=== PATIENT | female | born 1955 | race Caucasian/White ===

== ENCOUNTER 2016-10-10 15:20 | Emergency (ER) | payer OTHER, MEDICAID ==
[~2016-10-10] VITALS: Ht 157.5 cm; Wt 79.4 kg
[2016-10-10 15:25] VITALS: BP 132/78; PULSE 78; RESP 16; TEMP 97.6; O2SAT 98
--- NOTE | 2016-10-10 15:49 | NUR ---
Patient to ER bed 5 to gown for evaluation. Side rails up. Report given to PONCE CARLOS.
--- NOTE | 2016-10-10 15:50 | NUR ---
Patient in stable condition, alert and oriented x4. States spilled coffee on her sunday, coffee hit left chest and bilateral feet. Red burn nadja noted to left chest, skin intact. Right foot has redness and small closed blisters. Left medial foot has large closed blister that wraps to posterior foot. Patient states that Dr. Villagran sent her here due to concern of large blister to left foot and HIV+. No other complaints/injuries per patient or noted. Addendum: 10/10/16 at 1605 by [email or web address] Patient states is able to ambulate but is "walking a little funny"
--- NOTE | 2016-10-10 16:03 | NUR ---
Lindsey BLACKWOOD at bedside.
[2016-10-10] MEDS ORDERED: BACITRACIN 1 GM OINT TP ONE (16:30)
[2016-10-10] MEDS ORDERED: DIPH-TET-PERTUS Vaccine 0.5 ML VIAL (ADACEL) I.M. ONE (16:30)
--- NOTE | 2016-10-10 16:45 | NUR ---
Per LEAF BLENDER order: Applied bacitracin to left foot, covered with hydrocolliod dressing and wrapped with Kerlix and secured. Patient tolerated well.
--- NOTE | 2016-10-10 16:50 | NUR ---
Cast boot applied to left foot per TEAM LEADER order, pulse present before and after, sensation present, able to wiggle all toes freely, cap refill less than 3secs, sensation present.
[2016-10-10 17:10] VITALS: BP 125/80; PULSE 80; RESP 16; TEMP 97.8; O2SAT 99
--- NOTE | 2016-10-10 17:10 | NUR ---
Patient given written and verbal discharge instructions and verbalizes understanding. ER MD discussed with patient the results and treatment provided. Patient in stable condition. ID arm band removed. Rx of Motrin and polysporin cream given. Patient educated on pain management and to follow up with PMD in 2 days. Pain Scale 1/10, states will take medication at home. Opportunity for questions provided and answered.
== END 2016-10-10 17:10 | disposition home or self-care (01) ==
LOC: SED 15:20
DX: T25.222A Burn of second degree of left foot, initial encounter (principal); T25.131A Burn of first degree of right toe(s) (nail), initial encounter; T21.11XA Burn of first degree of chest wall, initial encounter; R03.0 Elevated blood-pressure reading, without diagnosis of hypertension; X10.0XXA Contact with hot drinks, initial encounter; Y93.89 Activity, other specified; Y99.8 Other external cause status; Y92.89 Other specified places as the place of occurrence of the external cause
CPT/HCPCS: 90715; 99283; 99284